=== PATIENT | female | born 1950 | race Caucasian/White ===

== ENCOUNTER 2023-07-15 13:25 | Emergency (ER) | payer MEDICARE, BC ==
[~2023-07-15] VITALS: Ht 165.1 cm; Wt 72.6 kg
[2023-07-15 13:28] VITALS: O2SAT 97
[2023-07-15 13:49] LABS: *BILIRUBIN,URIN NEGATIVE (NEGATIVE); *BLOOD, URINE 2+ (NEGATIVE); *CLARITY,URINE CLEAR (CLEAR); *KETONES,URINE NEGATIVE (NEGATIVE); *PROTEIN,URINE NEGATIVE (NEGATIVE); *UROBILINOGEN,URINE 0.2 E.U./dl (NORMAL); LEUKOCYTE ESTERASE ,URINE 1+ (NEGATIVE); NITRITE, URINE POSITIVE (NEGATIVE); UGLUCOSE NEGATIVE (NEGATIVE)
[2023-07-15 13:52] LABS: *COLOR,URINE DARK YELLOW (YELLOW)
[2023-07-15] MEDS ORDERED: PHEN-704 PO (14:15)
[2023-07-15] MEDS ORDERED: DOXY100C5 PO (14:15)
[2023-07-15 14:25] LABS: BACTERIA,URINE FEW /HPF (NONE SEEN); SQUAMOUS EPITHELIAL CELL,UR FEW /HPF (NONE SEEN)
== END 2023-07-15 14:19 | disposition home or self-care (01) ==
LOC: ER 13:25
DX: N39.0 Urinary tract infection, site not specified (principal); Z79.899 Other long term (current) drug therapy
CPT/HCPCS: A4606; A4663